=== PATIENT | male | born 1960 | race Caucasian/White ===

== ENCOUNTER 2022-02-06 17:04 | Inpatient (IN) | payer MEDICAID, SELFPAY ==
--- NOTE | ~2022-02-06 | CT_ITS ---
EXAMINATION: CT ABDOMEN AND PELVIS WITHOUT CONTRAST CLINICAL INFORMATION: Perirectal abscess COMPARISON: None TECHNIQUE: Multidetector volumetric imaging was performed from the superior aspect of the liver through the pubic symphysis. Sagittal and coronal reformatted images were obtained on the technologist's workstation. This CT examination was performed using dose optimization techniques as appropriate, variously including the following: *Automated exposure control *Adjustment of mA and/or kV according to patient size (this includes techniques or standardized protocols for targeted exams where dose is matched to indication/reason for exam; i.e. extremities or head) *Use of iterative reconstruction technique DLP: 699 mGy-cm FINDINGS: LUNG BASES: The visualized lung bases are unremarkable. LIVER, GALLBLADDER, AND BILIARY TREE: The liver is normal in size, shape, and attenuation. No focal hepatic lesion or biliary ductal dilatation is present. The gallbladder is unremarkable with no evidence of radiopaque gallstones, gallbladder wall thickening, or obvious pericholecystic inflammatory changes. PANCREAS: Unremarkable. SPLEEN: Unremarkable. ADRENAL GLANDS: Unremarkable. KIDNEYS AND URETERS: The kidneys are normal in size, shape, and attenuation. No hydronephrosis, hydroureter, or calculi seen. No perinephric stranding. Left lower pole simple renal cyst. No follow-up imaging recommended. BLADDER: Unremarkable. GASTROINTESTINAL TRACT: The stomach is unremarkable. Normal caliber small bowel. No obstruction. No colonic wall thickening or inflammatory change. Normal appendix. Mild colonic stool burden. Colonic diverticulosis without diverticulitis. There is no perirectal collection. Mild inflammation and skin thickening along the gluteal folds. No abscess identified. ABDOMINAL WALL: No significant hernia is appreciated. LYMPH NODES: Normal. VASCULAR: Normal caliber aorta with mild atherosclerotic calcification. PELVIC VISCERA: The prostate and seminal vesicles are unremarkable. OSSEOUS STRUCTURES: No acute or suspicious osseous abnormality. Degenerative changes at the lower lumbar spine with vacuum disc phenomenon. CT/CT abdomen pelvis wo con IMPRESSION: No perirectal abscess identified. Mild inflammation along the gluteal folds with no focal collection present. Fleischner guidelines were followed.
[2022-02-06 17:06] VITALS: BP 126/89; PULSE 105; RESP 15; TEMP 37.5; O2SAT 98; BMI 31.6
[2022-02-06 18:47] LABS: Basophils Percent Auto 0.2 % (0-2); Eosinophils Absolute Auto 0.2 X10*3/uL (0.0-0.4); Eosinophils Percent Auto 0.8 % (0-4); Hematocrit 38.8 % (42.0-52.0); Hemoglobin 13.3 g/dl (14.0-18.0); Imm Gran Abs Auto 0.08 X10*3/uL (0.00-0.03); Imm Gran Pct Auto 0.4 % (0.0-0.4); Lymphocytes Absolute Auto 1.7 X10*3/uL (1.2-4.9); Lymphocytes Percent Auto 9.4 % (20-40); MANUAL DIFF FLAG SCAN; Mean Corpuscular HGB Conc 34.3 g/dl (31.0-36.0); Mean Corpuscular Hemoglobin 30.4 pg (27.0-33.0); Mean Corpuscular Volume 88.6 fL (80.0-98.0); Mean Platelet Volume 10.3 fL (9.4-12.4); Monocytes Absolute Auto 1.6 X10*3/uL (0.1-1.2); Monocytes Percent Auto 8.7 % (2-11); Neutrophils Absolute Auto 14.4 x10*3/uL (2.0-8.3); Neutrophils Percent Auto 80.5 % (45-73); Platelet Count 278 X10*3/uL (160-400); Red Blood Count 4.38 X10*6/uL (4.60-5.80); Red Cell Distribution Width 12.8 % (11.0-16.0); SCAN SMEAR FLAG 1; White Blood Count 17.9 X10*3/uL (4.8-10.8)
[2022-02-06 19:02] LABS: Anion Gap 12 (12-20); Blood Urea Nitrogen 15 mg/dL (9-16); Calcium 9.1 mg/dL (8.4-10.2); Carbon Dioxide 23 mmol/L (22-29); Chloride 105 mmol/L (96-108); Creatinine Clr Calc Pharmacy 114.9; Estimated Glomerular Filt Rate > 60; Glucose Random 105 mg/dL (60-115); Potassium 4.1 mmol/L (3.3-5.1); Sodium 136 mmol/L (135-145)
[2022-02-06 19:11] LABS: SLIDE REVIEW VERIFIED
--- NOTE | 2022-02-06 22:07 | ED.SKABFB ---
HPI - Skin/Abscess/Foreign Bdy General Chief complaint: Wound/Laceration Stated complaint: abscess near rectum Time Seen by Provider: 02/06/22 19:03 Source: patient Mode of arrival: ambulatory History of Present Illness HPI narrative: 61-year-old male with history of high blood pressure who presents with 3 days abscess near his rectum, this has happened previously, patient denies any fever or chills but states he has has some right lower quadrant discomfort and said that he was constipated. Patient noted the while he was at work today ?it broke and started to drain?. Related Data Allergies Allergy/AdvReac Type Severity Reaction Status Date / Time No Known Allergies Allergy Unverified 06/13/20 15:13 Review of Systems Review of Systems: Pertinent positives and negatives as stated in HPI 10 point review of systems otherwise negative. [facility] Past Medical History Source: nursing notes reviewed Social History Social History Advance Directives: No Advance Directives Information Provided: Yes Physical Exam Vital Signs: Vital Signs: Last Vital Signs Temp 98.7 F 02/06/22 23:32 Pulse 80 02/06/22 23:32 Resp 16 02/06/22 23:32 BP 125/77 02/06/22 23:32 Pulse Ox 98 02/06/22 23:32 BMI result Body Mass Index 31.6 VITAL SIGNS: Reviewed. GENERAL: Well developed, well nourished, in no acute distress. HEAD: Normocephalic/atraumatic EYES: PERRLA, EOMI EARS: Ext canals without abnormality OROPHARYNX: no oral lesions noted, posterior pharynx clear LUNGS: Normal breath sounds. No adventitious sounds or accessory muscle use. SpO2<98> CARDIOVASCULAR: Regular rate and rhythm without noted murmurs ABDOMEN: Soft, mild tenderness in right lower quadrant without rebound, non-distended with bowel sounds. RECTAL: There is noted spontaneous drainage purulent/sanguinous that is suspicious of a fistula and surrounding erythema with significant tenderness to palpation and patient unable to tolerate a rectal exam at this time. MUSCULOSKELETAL: No tenderness, deformities, or effusions noted on gross inspection. EXTREMITIES: No cyanosis, clubbing or edema. SKIN: Inspection of the skin reveals no rashes NEUROLOGIC: Alert and oriented x 4. Strength and sensation to light touch were grossly intact x 4. Course Course Course Narrative: 2206: I suspect infection. This is a 61-year-old male with history and clinical presentation suggestive of perirectal abscess and on review of all investigations patient has a leukocytosis of [address] scan does not identify a perirectal abscess but does identify mild inflammation the gluteal folds. Patient received both antibiotics as well as pain medication and is feeling much improved. I discussed this case with Dr. Ennis who accepts admission. MDM - Skin/Abscess/Foreign Bdy Lab Data Result diagrams: 02/06/22 18:36 02/06/22 18:36 Labs: Lab Results 02/06/22 02/06/22 02/06/22 Range/Units 18:36 18:36 18:36 WBC 17.9 H (4.8-10.8) X10*3/uL RBC 4.38 L (4.60-5.80) X10*6/uL Hgb 13.3 L (14.0-18.0) g/dl Hct 38.8 L (42.0-52.0) % MCV 88.6 (80.0-98.0) fL MCH 30.4 (27.0-33.0) pg MCHC 34.3 (31.0-36.0) g/dl RDW 12.8 (11.0-16.0) % Plt Count 278 (160-400) X10*3/uL MPV 10.3 (9.4-12.4) fL Immature Gran % (Auto) 0.4 (0.0-0.4) % Neut % (Auto) 80.5 H (45-73) % Lymph % (Auto) 9.4 L (20-40) % Wharton % (Auto) 8.7 (2-11) % Eos % (Auto) 0.8 (0-4) % Baso % (Auto) 0.2 (0-2) % Lymph # (Auto) 1.7 (1.2-4.9) X10*3/uL Wharton # (Auto) 1.6 H (0.1-1.2) X10*3/uL Eos # (Auto) 0.2 (0.0-0.4) X10*3/uL Baso # (Auto) 0.0 (0.0-0.2) X10*3/uL Abs Immat Gran (auto) 0.08 H (0.00-0.03) X10*3/uL Absolute Neuts (auto) 14.4 H (2.0-8.3) x10*3/uL Absolute Nucleated RBC 0.000 (0.0-0.012) X10*3/uL Nucleated RBC % (auto) 0.0 (0.0-0.2) /100WBC Smear Tech's Comments VERIFIED Sodium 136 (135-145) mmol/L Potassium 4.1 (3.3-5.1) mmol/L Chloride 105 (96-108) mmol/L Carbon Dioxide 23 (22-29) mmol/L Anion Gap 12 (12-20) BUN 15 (9-16) mg/dL Creatinine 0.81 (0.5-1.4) mg/dL Estim Creat Clear Calc 114.9 Estimated GFR > 60 Random Glucose 105 (60-115) mg/dL Lactic Acid 1.0 (0.5-2.0) mmol/L Calcium 9.1 (8.4-10.2) mg/dL Discharge Plan Discharge Clinical Impression: Abscess, Hypertension Patient Disposition: Admitted As Inpatient
[2022-02-06] MEDS: 0.9 % Sodium Chloride 1,000 ML 999 ML IV (22:29)
[2022-02-06] MEDS: Piperacillin Sodium/Tazobactam 3.375 GM in 0.9 % Sodium Chloride 50 ML IV (22:31)
[2022-02-06 22:53] VITALS: BP 131/69; PULSE 66; RESP 16; TEMP 37; O2SAT 98
[2022-02-06 23:32] VITALS: BP 125/77; PULSE 80; RESP 16; TEMP 37.1; O2SAT 98
[2022-02-06 23:38] LABS: COVID-19 Test Negative (Negative)
[2022-02-06] MEDS: HYDROmorphone HCl 0.5 MG/0.5 ML SYRINGE 0.25 MG IVPUSH (23:38)
[2022-02-07] VITALS (7 sets, daily range): BP systolic 128–168; BP diastolic 51–78; PULSE 52–82; RESP 16–17; TEMP 35.9–37; O2SAT 95–100
--- NOTE | 2022-02-07 00:23 | PC.NURSE ---
I assumed nursing care of Tarun upon his arrival to bed 5. he presents for evaluation of an area of swelling, redness, tenderness and drainage in his allen-rectum. Tarun is alert and oriented x 3, calm and cooperative, makes eye contact with staff. There is no shortness of breath, he speaks in full sentences, no cyanosis, room air sat's WNL. He denies nausea, no vomiting. Skin pink/warm/dry. Tarun admits to 10/10 allen-rectal pain, worse with minimal movement in his stretcher or getting on/off the CT table. Pt has remained NPO and verbalizes an understanding of the need for this and that he will be admitted to the hospital. We will continue to monitor Tarun.
--- NOTE | 2022-02-07 05:44 | PM.HPGS ---
History of Present Illness History of Present Illness Date of Service: 02/07/22 Chief complaint: Perirectal abscess Narrative: Tarun Dorado is a 61 year old male Presenting with a perirectal abscess which began approximately 2 days ago. He reports 2 previous perirectal infections the most recent occurring 1 year ago. The previous infections drained spontaneously. The current episode began with a small amount of pain but increased over the next 24 hours and was associated with fever and chills. He subsequently presented to the emergency department. While waiting in the waiting room he felt that the abscess broke open. He continues to have some soreness but does feel improved since yesterday. Review of Systems Constitutional: Constitutional: Reports chills, Reports fever(s), Denies headache(s) and Denies poor appetite ENT: Reports dizziness and Denies headache(s) Cardiovascular: Cardiovascular: Denies chest pain, Denies rapid heart rate, Denies palpitations and Denies slow heart rate Respiratory: Respiratory: Denies chest congestion, Denies cough, Denies pain on inspiration and Denies wheezing Gastrointestinal: Gastrointestinal: Denies abdominal pain, Denies bloating, Denies change in stool character, Denies constipation, Denies diarrhea, Denies nausea, Denies vomiting and Denies hematemesis Musculoskeletal: Musculoskeletal: Denies back pain, Denies arthralgias, Denies joint swelling and Denies numbness Integumentary/Breasts: Skin/Breast: Denies change in pigmentation, Denies erythema and Denies rash Neurologic: Reports dizziness, Denies headache(s) and Denies numbness Psychiatric: Psychiatric: Denies anxiety and Denies depression Endocrine: Endocrine: Denies palpitations Hematologic/Lymphatic: Hematologic/Lymphatic: Denies easy bleeding, Denies easy bruising and Denies lymphadenopathy Allergic/Immunologic: Allergic/Immunologic: Denies wheezing PMFSH Past Medical History Medical History Hypertension Social History Social History Advance Directives: No Advance Directives Information Provided: Yes Meds Allergies Allergy/AdvReac Type Severity Reaction Status Date / Time No Known Allergies Allergy Unverified 06/13/20 15:13 Active Medications: Current Medications Oxycodone HCl (Oxycodone Hcl Immed Release 5 Mg Tablet) 5 mg PO Q6H PRN PRN Reason: Pain, Moderate (Pain Scale 4-6 Home Medications Medication Instructions Recorded Confirmed Last Taken Type lisinopril 10 mg tablet 1 tab PO DAILY 02/07/22 02/07/22 Unknown History meloxicam 15 mg tablet 1 tab PO DAILY 02/07/22 02/07/22 Unknown History Physical Exam Vital Signs: Vital Signs: Last Vital Signs Temp 98.4 F 02/07/22 02:00 Pulse 82 02/07/22 02:00 Resp 16 02/07/22 02:00 BP 128/64 02/07/22 02:00 Pulse Ox 98 02/07/22 02:00 BMI result Body Mass Index 31.6 Const: General: cooperative, comfortable and well developed Nutritional Appearance: well nourished Orientation/consciousness: patient oriented x3 Eyes: Sclerae: sclerae normal EOM: EOMs intact bilaterally Neck: Neck: Yes normal visual inspection Resp: Effort & Inspection: normal respiratory effort, no cough, no respiratory distress and no stridor Cardio: Jugular venous distension: no JVD GI: Inspection: Yes normal to inspection Palpation (GI): Soft to palpation, nontender, no guarding and not rigid Back/Spine/Pelvis: Back/spine/pelvis image: 1. Draining abscess in the left perianal wall. No erythema is appreciated. Purulent discharge noted on skin but no residual fluctuance is identified. There are other areas of scarring mainly in the anterior wall but no evidence of acute infection. Skin: General skin exam: dry skin Rashes: no rashes Neuro: General: patient oriented x3 and no focal motor deficits Extrem: General: Yes full ROM and Yes no clubbing, cyanosis or edema Psych: Appearance: grossly normal Results Results Labs: Short CBC 02/06/22 Range/Units 18:36 WBC 17.9 H (4.8-10.8) X10*3/uL Hgb 13.3 L (14.0-18.0) g/dl Hct 38.8 L (42.0-52.0) % Plt Count 278 (160-400) X10*3/uL BMP 02/06/22 18:36 Sodium 136 Potassium 4.1 Chloride 105 Carbon Dioxide 23 BUN 15 Creatinine 0.81 Calcium 9.1 Assessment and Plan (1) Perirectal abscess: Status: Acute Plan 61-year-old male patient presenting with a perirectal abscess which broke spontaneously yesterday in the emergency department. The abscess is now decompressed and continues to drain. [place] [id number] refer is admitted for IV antibiotics. I will recheck the WBC today if this remains elevated he will need to stay for continued antibiotics. Patient expressed understanding and agrees with the plan. Quality Stroke Does the patient have a stroke diagnosis?: No VTE Prior VTE?: No VTE Risk Level:: Surgical - low VTE Device Contraindication: N/A - Device Ordered VTE Drug Contraindication: Treatment Not Indicated Procedures Date of Service Date of Service: 02/07/22
--- NOTE | 2022-02-07 05:51 | PC.NURSE ---
PATIENT OUT PUT WAS 700 ML
[2022-02-07] MEDS: oxyCODONE HCl Immed Release 5 MG TABLET PO ×3 (06:46→20:29)
[2022-02-07] MEDS: Dextrose 5 % and Lactated Ring 1,000 ML 125 ML IVCONT ×3 (07:21→23:01)
[2022-02-07] MEDS: Piperacillin Sodium/Tazobactam 3.375 GM in 0.9 % Sodium Chloride 50 ML IV ×3 (07:22→20:29)
[2022-02-07] MEDS: 0.9 % Sodium Chloride Flush 3 ML SYRINGE IVFLUSH ×3 (07:41→23:00)
--- NOTE | 2022-02-07 08:02 | PHA.MEDREC ---
Pharmacy Consult ? Medication Reconciliation Pharmacy has completed the medication reconciliation.
[2022-02-07 08:58] LABS: Hematocrit 36.6 % (42.0-52.0); Hemoglobin 12.4 g/dl (14.0-18.0); Mean Corpuscular HGB Conc 33.9 g/dl (31.0-36.0); Mean Corpuscular Hemoglobin 30.5 pg (27.0-33.0); Mean Corpuscular Volume 89.9 fL (80.0-98.0); Mean Platelet Volume 10.2 fL (9.4-12.4); Platelet Count 234 X10*3/uL (160-400); Red Blood Count 4.07 X10*6/uL (4.60-5.80); Red Cell Distribution Width 12.9 % (11.0-16.0); White Blood Count 12.1 X10*3/uL (4.8-10.8)
--- NOTE | 2022-02-07 15:01 | PC.NURSE ---
Rectum and b/l buttocks assessed-0.3x0.3 cm abscess cavity noted to right rectum-draining small amount of garibay drainage, no odor-pericare provided.
--- NOTE | 2022-02-07 15:39 | MHC.CM.NN ---
met with pt who lives with his and grandchildren he is independent his car [facility] [place] parking lot h plans ondriving himself home ,it is not anticapated that he will need servceis when dcd ..
--- NOTE | 2022-02-07 17:05 | PC.NURSE ---
Pt states wound is starting to feel firm. Wound does appear closed, no drainage noted in a while. Dr. Ennis updated.
--- NOTE | 2022-02-07 17:23 | PC.NURSE ---
Per Dr. Ennis IV antibiotics. He will check patient in the morning. Patient might need I&D if WBC count goes up. Patient informed of current plan.
--- NOTE | 2022-02-07 18:03 | PC.NURSE ---
PATIENT WALK TO BATHROOM AND BACK .
--- NOTE | 2022-02-07 19:18 | PC.NURSE ---
rn to rn with reva in overflow
--- NOTE | 2022-02-07 19:18 | PC.NURSE ---
Report received from MARITZA Dueñas. Awaiting patient to Overflow unit.
[2022-02-07] MEDS: Milk of Magnesia 30 ML ORAL.SUSP PO (19:37)
[2022-02-08] MEDS: Piperacillin Sodium/Tazobactam 3.375 GM in 0.9 % Sodium Chloride 50 ML IV ×2 (03:05→08:47)
[2022-02-08] MEDS: Dextrose 5 % and Lactated Ring 1,000 ML 125 ML IVCONT (06:09)
[2022-02-08 07:08] LABS: Hematocrit 37.4 % (42.0-52.0); Hemoglobin 12.6 g/dl (14.0-18.0); Mean Corpuscular HGB Conc 33.7 g/dl (31.0-36.0); Mean Corpuscular Hemoglobin 30.5 pg (27.0-33.0); Mean Corpuscular Volume 90.6 fL (80.0-98.0); Mean Platelet Volume 10.6 fL (9.4-12.4); Platelet Count 246 X10*3/uL (160-400); Red Blood Count 4.13 X10*6/uL (4.60-5.80); Red Cell Distribution Width 12.7 % (11.0-16.0); White Blood Count 8.3 X10*3/uL (4.8-10.8)
--- NOTE | 2022-02-08 07:16 | PC.NURSE ---
pt resting in bed at this time, nad. plan is for pt to be re evaluated by surgery this am. pt aware of plans and denies having any questions at this time.
--- NOTE | 2022-02-08 09:44 | PM.DS ---
DS: Providers Provider Date of Service: 02/08/22 Date of admission: 02/06/22 23:42 Date of discharge: 02/08/22 Primary care physician: Nav Solano DO, MD Admitting clinician: Bang Ennis Discharging clinician: Bang Ennis DS: Diagnosis Discharge Diagnosis (1) Perirectal abscess: Status: Acute DS: Summary Hospital Course Hospital Course: Tarun Dorado is a 61 year old male presenting with a perirectal abscess which began approximately 2 days ago prior to admission.? He reports 2 previous perirectal infections the most recent occurring 1 year ago.? The previous infections drained spontaneously without the need for incision and drainage.? The current episode began with a small amount of pain but increased over the next 24 hours and was associated with fever and chills.? He subsequently presented to the emergency department.? While waiting in the waiting room he felt that the abscess broke open.? He was subsequently admitted to the surgical service and placed on IV antibiotics. Omitting laboratories revealed WBC of 17.9. He was subsequently started on Zosyn and underwent local wound care. CT of the abdomen and pelvis was negative for residual abscess. Over the next several days the pain decreased as did the amount of discharge. His WBC decreased daily until the day of discharge on 02/08/2022 when the WBC was found to be normal a 8.3. He subsequently discharged to home in stable condition. He was instructed on local wound care including warm soaks and dressing changes. He was prescribed Augmentin for the next 10 days as well as oxycodone as needed for pain. He will follow up in our office in approximately 1 week for wound examination. He should call sooner for any new concerns. Time spent discussing smoking cessation with patient: 3 to 10 minutes Status at Discharge Functional status at discharge: independent ambulation Overall status at discharge: patient is back to baseline Time Spent with Patient Time attestation: Total time spent providing and/or coordinating discharge services: Discharge coordination time: Less than 30 minutes Quality: Safe Use of Opioids Does Pt have an Active Cancer Diagnosis on the Problem List?: No Quality: Stroke Does the patient have a stroke diagnosis?: No Physical Exam Vital Signs: Vital Signs: Last Vital Signs Temp 96.6 F L 02/07/22 22:55 Pulse 57 02/07/22 22:55 Resp 16 02/07/22 22:55 BP 168/78 H 02/07/22 22:55 Pulse Ox 100 02/07/22 22:55 BMI result Body Mass Index 31.6 Const: General: healthy appearing and no acute distress Nutritional Appearance: well nourished Orientation/consciousness: patient oriented x3 Limitations: no limitations Resp: Effort & Inspection: normal respiratory effort and no respiratory distress GI: Inspection: Yes normal to inspection Palpation (GI): Soft to palpation, not firm, nontender, no guarding and not rigid Back/Spine/Pelvis: Other: Healing perirectal abscess with minimal discharge and no evidence of fluctuance or tenderness. Skin: General skin exam: no rashes or lesions noted Neuro: General: patient oriented x3 Extrem: General: No edema DS: Data Data Completed and Pending Labs on day of discharge: Laboratory Results - last 24 hr 02/08/22 06:43 WBC 8.3 RBC 4.13 L Hgb 12.6 L Hct 37.4 L MCV 90.6 MCH 30.5 MCHC 33.7 RDW 12.7 Plt Count 246 MPV 10.6 Absolute Nucleated RBC 0.000 Nucleated RBC % (auto) 0.0 Preliminary micro results at discharge 02/06/22 18:27 Blood Culture - Preliminary Blood - Venous No growth after 24 hours. 02/06/22 18:36 Blood Culture - Preliminary Blood - Venous No growth after 24 hours. Discharge Plan Discharge Patient Disposition: Home, Self-Care Discharge Diagnosis: Perirectal abscess, Sepsis Referrals: Bang Ennis MD [Physician] - 1 Week Nav Solano DO, MD [Primary Care Provider] - 1 Week Discharge Medications: New oxycodone 5 mg Tablet 5 mg PO Q6H PRN (Reason: pain (scale score 7-10)) Qty: 10 0RF amoxicillin-pot clavulanate [Augmentin] 500-125 mg tablet 1 tab PO Q8H 10 Days Qty: 30 0RF Continued meloxicam 15 mg tablet 1 tab PO DAILY 0RF lisinopril 10 mg tablet 1 tab PO DAILY 0RF Discharge Orders: Discharge Order (Routine); Ordered 02/08/22 Ordered By: Bang Ennis Diet: advance to usual diet Activity on Discharge: As tolerated Stand Alone Forms: Patient Portal Discharge page, Work/School Release Care Plan Goals: Return to normal diet and activity, resolution of infection Health Concerns: pain and discharge from rectal abscess Plan of Treatment: IV antibiotics converted to oral antibiotics Assessment: perirectal abscess Discharge Date/Time: 02/08/22 10:23
== END 2022-02-08 10:23 | disposition home or self-care (01) | DRG 254 ==
LOC: HO.ED 23:38 → HO.EDOVER 02-07 00:52
PROVIDERS: Admitting Provider Surgery; Emergency Provider Student in an Organized Health Care Education/Training Program; PCP Internal Medicine; Visit Provider Surgery
DX: K61.1 Rectal abscess (principal); I10 Essential (primary) hypertension; Z20.822 Contact with and (suspected) exposure to COVID-19; Z79.899 Other long term (current) drug therapy
CPT/HCPCS: 36415; 74176; 80048; 83605; 85025; 85027; 87040; 87635; 96365; 96375; 99218; 99284; 99285; J1170; J2543

== ENCOUNTER → 2022-02-20 08:21 | Outpatient (BNVA) | payer MEDICAID, SELFPAY | PROVIDERS: PCP Internal Medicine; Visit Provider Surgery | DX: Z87.2 Personal history of diseases of the skin and subcutaneous tissue (principal) | CPT/HCPCS: 99212 ==